=== PATIENT | male | born 1955 | race Caucasian/White ===

== ENCOUNTER 2017-10-04 23:45 | Emergency (ER) | payer MEDICAID, OTHER ==
--- NOTE | 2017-10-05 02:41 | Emergency Room Report ---
History of Present Illness General Chief Complaint: To Be Triaged Present Illness Allergies: Coded Allergies: Penicillin (Verified Allergy, Unknown, 07/14/08) Sulfa (Verified Allergy, Unknown, 07/14/08) Medical Decision Making Diagnostic Impression: Primary Impression: Patient left without being seen ER Course patient left prior to triage Status: unchanged Disposition: LEFT W/OUT BEING SEEN Condition: Stable Referrals: NOT CHOSEN IPA/,REFERRING (PCP) Bin Anne MD Oct 05, 2017 02:41
== END 2017-10-04 23:55 | disposition left against medical advice (07) ==
LOC: EMR 23:54
DX: Z53.21 Procedure and treatment not carried out due to patient leaving prior to being seen by health care provider (principal); Z88.0 Allergy status to penicillin; Z88.2 Allergy status to sulfonamides